=== PATIENT | female | born 1965 | race Asian ===

== ENCOUNTER 2016-04-17 16:01 | Day surgery (SDC) | payer OTHER ==
[~2016-04-17] VITALS: Ht 152.4 cm; Wt 74.2 kg
[2016-04-17] MEDS ORDERED: LISINOPRIL (16:49)
[2016-04-17] MEDS ORDERED: ATENOLOL (16:49)
[2016-04-17] MEDS ORDERED: ASPIRIN (16:49)
[2016-04-17] MEDS ORDERED: METFORMIN (16:49)
[2016-04-17] MEDS ORDERED: OMEPRAZOLE (16:49)
[2016-04-17 16:52] VITALS: Ht 152.4 cm; Wt 74.2 kg
[2016-04-17] MEDS ORDERED: PROPOFOL 60 ML ONE (17:03)
[2016-04-17 17:10] VITALS: BP 146/67; PULSE 101; RESP 18
[2016-04-17] MEDS ORDERED: LIDOCAINE 2% (SDV) 5 ML INJ ONE (17:12)
[2016-04-17 18:08] VITALS: BP 155/75; PULSE 96; RESP 16
[2016-04-17 18:15] VITALS: BP 150/72; PULSE 98; RESP 16
[2016-04-17 18:25] VITALS: BP 147/75; PULSE 95; RESP 16
[2016-04-17 18:55] VITALS: BP 146/83; PULSE 96
--- NOTE | 2016-04-17 23:06 | GILP ---
DATE OF PROCEDURE: NAME OF PROCEDURES: 1. Esophagogastroduodenoscopy and biopsy. 2. Colonoscopy and biopsy. SURGEON: Denise Ryan MD PREOPERATIVE DIAGNOSES: 1. Abdominal pain. 2. Change in the bowel habit. 3. Rectal bleeding. POSTOPERATIVE DIAGNOSES: 1. Hiatal hernia. 2. Gastroesophageal reflux disease. 3. Gastritis with erosions. 4. Gastric mucosal biopsies were taken for Helicobacter pylori test. 5. Colonoscopy all the way to the cecum. 6. Internal and external hemorrhoids. 7. Random biopsies were taken to rule out microscopic colitis. INDICATION FOR THE PROCEDURE: Ms. Brooke Florian is a 50-year-old female patient who had upper abdominal pain, not responding to therapy. The patient also was complaining of change in the bowel habit with alternating constipation and diarrhea. She also had rectal bleeding. She never had screening colo noscopy, so the patient was scheduled for endoscopy and colonoscopy for further evaluation. The procedures and possible complications were well explained to the patient, she understood and con sented to the procedure. DESCRIPTION OF PROCEDURE: Under the influence of anesthesia, the gastroscope was carefully introduc ed into the esophagus and under direct vision, it was advanced to the stomach and through the pyloru s into the duodenal bulb and descending duodenum. FINDINGS: ESOPHAGUS: The patient had hiatal hernia and gastroesophageal reflux disease. STOMACH: She had gastritis with erosions. Gastric mucosal biopsies were taken for H. pylori test. DUODENUM: Normal. The colonoscope was carefully introduced in the rectum and under direct vision, it was advanced all the way to the cecum. FINDINGS: The patient had large internal and external hemorrhoids. Random biopsies were taken to r ule out microscopic colitis. No colon neoplasm was identified. She tolerated the procedures very well and there was no complication from the procedures. At the en d of the procedures, she was awake with stable vital signs and she was discharged home to the care o f her family. IMPRESSION: Please see postoperative diagnoses. PLAN: 1. Continue omeprazole. 2. Bentyl 10 mg p.o. t.i.d. p.r.n. for pain or diarrhea. 3. Anusol-HC 2.5% cream b.i.d. 4. Await histopathology reports. 5. If the rectal bleeding continues, may consider hemorrhoidectomy because of the large size of the internal and external hemorrhoids. ADDENDUM: The patient's next screening colonoscopy will be in 10 years. Dictated By: DENISE CASTRO/BIENVENIDO Conf#: [id number] DID#: [id number]
== END 2016-04-17 18:55 | disposition home or self-care (01) ==
LOC: GIL 16:01
PROVIDERS: ATTEND Internal Medicine Gastroenterology
DX: K21.9 Gastro-esophageal reflux disease without esophagitis (principal); K44.9 Diaphragmatic hernia without obstruction or gangrene; K29.70 Gastritis, unspecified, without bleeding; K64.8 Other hemorrhoids; K64.4 Residual hemorrhoidal skin tags; K62.5 Hemorrhage of anus and rectum; E11.9 Type 2 diabetes mellitus without complications; I10 Essential (primary) hypertension; Z86.73 Personal history of transient ischemic attack (TIA), and cerebral infarction without residual deficits
CPT/HCPCS: 43239; 45380; 87081; 88305; Z7610